=== PATIENT | male | born 1980 | race Caucasian/White ===

== ENCOUNTER 2017-04-29 16:02 | Emergency (ER) | payer SELFPAY ==
[2017-04-29 16:17] VITALS: O2SAT 98
[2017-04-29] MEDS ORDERED: Amoxicillin-Clav 875-125 mg Tab PO STA (16:44)
[2017-04-29] MEDS ORDERED: Lidocaine 2% Inj (20ml) INFIL ONE (16:45)
[2017-04-29] MEDS ORDERED: Amoxicillin-Clav 875-125 mg Tab PO ONE (17:00)
[2017-04-29] MEDS ORDERED: Lidocaine 2% Inj (20ml) ONE ×2 (17:00→17:48)
--- NOTE | 2017-04-29 19:19 | C.PDOC ---
Time Seen by Provider: 04/29/17 16:27 Chief Complaint (Nursing): Abnormal Skin Integrity Past Medical History Vital Signs: Last Vital Signs Temp 98.1 F 04/29/17 16:13 Pulse 76 04/29/17 16:13 Resp 20 04/29/17 16:13 BP 107/68 04/29/17 16:13 Pulse Ox 98 04/29/17 16:13 - Social History Hx Alcohol Use: Yes Hx Substance Use: No - Immunization History Hx Tetanus Toxoid Vaccination: No Hx Influenza Vaccination: No Hx Pneumococcal Vaccination: No ED Course And Treatment O2 Sat by Pulse Oximetry: 98
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
[2017-04-29 19:42] VITALS: BP 124/72; PULSE 78; RESP 18; TEMP 98.2
[2017-04-29] MEDS ORDERED: Bacitracin 500 Units/gm Oint Foilpak UD TOP ONE (19:46)
[2017-04-29] MEDS ORDERED: Bacitracin 500 Units/gm Oint Foilpak UD ONE (19:48)
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
== END 2017-04-29 20:04 | disposition home or self-care (01) ==
LOC: C.ER 16:02
DX: S60.112A Contusion of left thumb with damage to nail, initial encounter (principal); Y04.1XXA Assault by human bite, initial encounter; Y92.89 Other specified places as the place of occurrence of the external cause

== ENCOUNTER 2017-04-30 22:11 | Observation (INO) | payer SELFPAY ==
[2017-04-30 22:24] VITALS: RESP 20
--- NOTE | 2017-04-30 22:30 | C.PDOC ---
History Of Present Illness Patient was brought to the ED by EMS after being found wandering intoxicated. Patient denies any physical complaints at this time. Time Seen by Provider: 04/30/17 22:29 Chief Complaint (Nursing): Substance Abuse History Per: Patient, EMS History/Exam Limitations: no limitations Onset/Duration Of Symptoms: Hrs Current Symptoms Are (Timing): Still Present Suicide/Self Injury Attempted (Context): None Severity: None Pain Scale Rating Of: 0 Associated Symptoms: denies: Suicidal Thoughts, Suicidal Plan Involuntary Hold By: None Recent travel outside of the [place]: No Past Medical History Reviewed: Historical Data, Nursing Documentation, Vital Signs Vital Signs: Last Vital Signs Temp 98 F 05/01/17 02:30 Pulse 84 05/01/17 02:30 Resp 20 05/01/17 02:30 BP 130/70 05/01/17 02:30 Pulse Ox 96 05/01/17 04:33 Family History: States: Unknown Family Hx - Social History Hx Alcohol Use: Yes Hx Substance Use: No - Immunization History Hx Tetanus Toxoid Vaccination: Yes (1 year ago) Hx Influenza Vaccination: No Hx Pneumococcal Vaccination: No Review Of Systems Constitutional: Negative for: Fever, Chills Cardiovascular: Negative for: Chest Pain, Palpitations Respiratory: Negative for: Cough, Shortness of Breath Gastrointestinal: Negative for: Nausea, Vomiting, Abdominal Pain, Diarrhea Psych: Negative for: Suicidal ideation Physical Exam - Physical Exam Appears: Non-toxic, No Acute Distress, Other (EtOH on breath ) Skin: Warm, Dry Eye(s): bilateral: Normal Inspection Oral Mucosa: Moist Neck: Supple Chest: Symmetrical, No Deformity Cardiovascular: Rhythm Regular Respiratory: No Rales, No Rhonchi, No Wheezing Gastrointestinal/Abdominal: Soft, No Tenderness, No Distention, No Guarding, No Rebound Extremity: Normal ROM, No Tenderness Neurological/Psych: Oriented x3 ED Course And Treatment O2 Sat by Pulse Oximetry: 96 (room air ) Pulse Ox Interpretation: Normal Reevaluation Time: 05:37 Reassessment Condition: Improved ED OBSERVATION Discharge: Yes Date of observation admission: 04/30/17 Time of observation admission: 22:31 - Observation admission statement Patient is being placed in observation because:: acute alcohol intoxication - Goals of Observation Goals of observation are:: sobriety - Progress Note Progress Note: 04/30/17 22:31 vitals stable 05/01/17 02:33 arousable Disposition Counseled Patient/Family Regarding: Studies Performed, Diagnosis, Need For Followup - Disposition Disposition: HOME/ ROUTINE Disposition Time: 22:30 Condition: FAIR - Clinical Impression Clinical Impression: Alcohol intoxication - Scribe Statement The provider has reviewed the documentation as recorded by the Scribe Brenda Jefferson All medical record entries made by the Jose Antonioibyancy were at my direction and personally dictated by me. I have reviewed the chart and agree that the record accurately reflects my personal performance of the history, physical exam, medical decision making, and the department course for this patient. I have also personally directed, reviewed, and agree with the discharge instructions and disposition.
[2017-05-01 04:46] VITALS: TEMP 98
[2017-05-01 05:53] VITALS: BP 127/86; PULSE 78; O2SAT 98
== END 2017-05-01 05:38 | disposition home or self-care (01) ==
LOC: C.ER 22:11 → C.9OBSV 22:30
PROVIDERS: ADMIT Emergency Medicine; ATTEND Emergency Medicine
DX: F10.129 Alcohol abuse with intoxication, unspecified (principal); Y90.9 Presence of alcohol in blood, level not specified
CPT/HCPCS: 82948; G0378